=== PATIENT | male | born 1995 | race Two or more races ===

== ENCOUNTER 2017-03-22 19:23 | Emergency (ER) | payer OTHER ==
[2017-03-22] MEDS: DIPHTH,PERTUSS(ACELL),TET TOX 0.5 ML DISP.SYRIN. VAX IM (20:04)
[2017-03-22] MEDS: LIDOCAINE WITH 8.4% SOD BICARB 3 ML DISP.SYRIN. IJ (20:05)
== END 2017-03-22 20:56 | disposition home or self-care (01) ==
LOC: ER 19:23
DX: S01.111A Laceration without foreign body of right eyelid and periocular area, initial encounter (principal); S01.81XA Laceration without foreign body of other part of head, initial encounter; F12.10 Cannabis abuse, uncomplicated; W18.39XA Other fall on same level, initial encounter; Y93.89 Activity, other specified; Y99.8 Other external cause status; Y92.89 Other specified places as the place of occurrence of the external cause
CPT/HCPCS: 12013; 70486; 90471; 90715; 99284-25